=== PATIENT | male | born 1985 | race Two or more races ===

== ENCOUNTER 2023-04-03 06:03 | Emergency (ER) | payer SELFPAY ==
[~2023-04-03] VITALS: Ht 180.3 cm; Wt 96.6 kg
[2023-04-03 07:36] LABS: COVID19 ANTIGEN SOFIA FIA NEGATIVE (NEGATIVE)
[2023-04-03 07:38] LABS: Rapid Influenza B Negative (Negative)
[2023-04-03 07:40] LABS: Rapid Influenza A Positive (Negative)
[2023-04-03 07:43] VITALS: BP 143/94; PULSE 108; RESP 16; TEMP 98.9; O2SAT 97
[2023-04-03] MEDS ORDERED: ZOFR4T PO (07:57)
[2023-04-03] MEDS ORDERED: IBUP-1456 PO (07:57)
[2023-04-03] MEDS ORDERED: TAMIFLU PO (07:57)
[2023-04-03] MEDS ORDERED: ACET500T58 PO (07:57)
== END 2023-04-03 07:58 | disposition home or self-care (01) ==
LOC: EEVIPCON 06:03 → ER 06:03
DX: J10.1 Influenza due to other identified influenza virus with other respiratory manifestations (principal); Z20.822 Contact with and (suspected) exposure to COVID-19
CPT/HCPCS: 36415; 87426; 87804

== ENCOUNTER 2025-03-31 13:23 | Emergency (ER) | payer MEDICAID ==
[~2025-03-31] VITALS: Ht 182.9 cm; Wt 101.6 kg
[~2025-03-31 13:23] MED LIST: ACET500T58 PO; IBUP-1456 PO; TAMIFLU PO; ZOFR4T PO
[2025-03-31 13:27] VITALS: BP 134/91; PULSE 78; RESP 18; O2SAT 98
[2025-03-31] MEDS: LIDOCAINE 5% TOPICAL PATCH TOP ONE (14:15)
[2025-03-31] MEDS: KETOROLAC TROMETH 60MG/2ML VIAL IM ONE (14:15)
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
[2025-03-31 15:50] VITALS: TEMP 98.4
[2025-03-31] MEDS: ACETAMINOPHEN 500 MG TAB or CAP PO ONE (15:50)
[2025-03-31] MEDS ORDERED: LIDO5DIS21 TOP (16:11)
[2025-03-31] MEDS ORDERED: CYCL-839 PO (16:11)
--- NOTE | 2025-04-01 12:47 | DI ---
INDICATION: LBP after work injury COMPARISON: None TECHNIQUE: Total of 3 views of the lumbar spine were obtained. FINDINGS: Levoscoliosis noted. The intervertebral disc spaces are well-maintained. No significant facet arthropathy is noted. No acute fracture, vertebral compression deformity or aggressive osseous lesions. The paravertebral soft tissues are grossly unremarkable. IMPRESSION: 1. No acute fracture. ERIZER MTDD
== END 2025-03-31 22:10 | disposition home or self-care (01) ==
LOC: ER 13:23 → EEVIPCON 13:23 → ER 22:10
DX: M54.50 Low back pain, unspecified (principal); M62.830 Muscle spasm of back
CPT/HCPCS: 72100; 96372; 99283; J1885